=== PATIENT | male | born 1965 | race Two or more races ===

== ENCOUNTER 2025-04-07 09:15 | Day surgery (SDC) | payer MEDICAID, SELFPAY ==
--- NOTE | 2025-04-05 07:00 | EKG_ITS ---
[facility] Test Date: 2025-04-05 Pat Name: JOHN SANCHEZ Department: Room: - Gender: Male [employer]: [facility] : 1965 Requested By: John Darling Order Number: [id number] Reading MD: John Darling Measurements Intervals [place] Rate: 66 P: 9 MA: 179 QRS: 69 QRSD: 97 T: 37 QT: 381 QTc: 400 Interpretive Statements SINUS RHYTHM Compared to ECG 03/28/2024 10:26:21 No significant changes /[id number]/[id number]
[2025-04-05 08:51] VITALS: BMI 39.9
[2025-04-05 09:50] LABS: Basophils # (Auto) 0.0 Thou/mm3 (0.0-0.2); Basophils % (Auto) 0 % (0-2.5); Eosinophils # (Auto) 0.3 Thou/mm3 (0.0-0.5); Eosinophils % (Auto) 3 % (0-10); Hematocrit 42.6 % (41.0-53.0); Hemoglobin 14.5 g/dL (13.5-16.0); Immature Granulocytes Auto 0.04 Thou/mm3 (0.00-0.00); Lymphocytes # (Auto) 3.2 Thou/mm3 (1.0-4.8); Lymphocytes % (Auto) 29 % (10-50); Mean Corpuscular HGB Conc 34.0 g/dl (31.0-37.0); Mean Corpuscular Hemoglobin 31.2 pg (25.0-35.0); Mean Corpuscular Volume 92 fL (80-100); Monocytes # (Auto) 1.0 Thou/mm3 (0.0-0.8); Monocytes % (Auto) 9 % (0-12); Neutrophils # (Auto) 6.3 Thou/mm3 (1.8-7.7); Neutrophils % (Auto) 58 % (37-80); Nucleated Red Blood Cell # 0.00 Thou/mm3 (0.00-0.00); Nucleated Red Blood Cell % 0 /100 WBC (0); Platelet Count 281 Thou/mm3 (140-440); RDW Standard Deviation 48.4 fL (35.1-43.9); Red Blood Count 4.65 Miln/mm3 (4.50-5.90); White Blood Count 10.8 Thou/mm3 (3.8-10.6)
[2025-04-05 09:55] LABS: INR 1.0 (0.9-1.3); Prothrombin Time 11.0 Seconds (9.0-12.2)
[2025-04-05 10:00] LABS: Alanine Aminotransferase 90 U/L (10-49); Albumin, Serum 4.3 gm/dL (3.4-4.8); Albumin/Globulin Ratio 1.3 (1.2-2.2); Alkaline Phosphatase 63 U/L (46-116); Anion Gap 9 (7-16); Aspartate Amino Transferase 40 U/L (0-34); BUN/Creatinine Ratio 8 Ratio (12-20); Bilirubin,Total 0.5 mg/dL (0.3-1.2); Blood Urea Nitrogen 8 mg/dL (9-23); Calcium 9.8 mg/dL (8.3-10.6); Calcium (Corrected) 9.8 mg/dL (8.5-10.1); Carbon Dioxide 28.0 mMol/L (20.0-31.0); Chloride 106 mMol/L (98-107); Creatinine (Component) 1.0 mg/dL (0.6-1.3); Estimated Creatinine Clearance 106.6 mL/min (>60); Globulin 3.3 gm/dL (2.3-3.5); Glucose 114 mg/dL (74-106); Osmolality,Calculated 284 (275-295); Potassium 4.2 mMol/L (3.4-5.1); Sodium 143 mMol/L (136-145); Total Protein 7.6 gm/dL (5.7-8.2); eGFR > 60 See Note
[2025-04-07] VITALS (12 sets, daily range): BP systolic 118–146; BP diastolic 73–97; PULSE 75–90; RESP 14–20; TEMP 36.1–36.4; O2SAT 93–96
--- NOTE | 2025-04-07 11:53 | PD.SUROPNT ---
Date of Procedure 04/07/25 Pre Op Diagnosis Incarcerated umbilical hernia Post Op Diagnosis Incarcerated umbilical hernia Procedure Laparoscopic assisted repair of incarcerated umbilical hernia with mesh Findings Approximately 3.5 cm umbilical hernia defect with incarcerated omentum Procedure Description Patient brought into the operating room in supine position. After administration of general orotracheal anesthesia, patient's abdomen prepped and draped in standard surgical manner. A 5 mm incision was made in left upper quadrant and Veress needle was inserted, pneumoperitoneum was obtained to 15 mmHg. The Veress needle was removed and a 5 mm trocar was placed. Laparoscopic camera was inserted, under direct visualization a laparoscopic camera a 5 mm trocar placed in left lower quadrant and additional 5 mm trocar placed in right lower quadrant. The abdomen was inspected and patient was noted to have an incarcerated umbilical hernia with omentum being incarcerated within the hernia sac. The hernia sac was excised with Harmonic scalpel laparoscopically and the omentum was reduced. At this point approximately 3 cm semicircular incision was made superior to the umbilicus and dissection was carried to subcutaneous tissue. The hernia sac was circumferentially dissected off surrounding tissue. The hernia sac and the incarcerated omentum were then excised from surrounding abdominal fascia. The fascia was cleared from overlying tissue. The defect was approximately 3.5 cm in diameter. A 4 x 6 elliptical shape proceed mesh was used to cover the defect. 2 tacking sutures using 0 Ethibond placed the 2 ends of the mesh and the mesh was placed inside the abdominal cavity through the hernia defect. The defect was closed with interrupted sutures using 0 Ethibond. The umbilicus was tacked into the underlying abdominal fascia was 2-0 Vicryl suture in subcutaneous tissue closed with interrupted sutures of 2-0 Vicryl. The abdomen was once again insufflated. 2 tacking sutures of the 2 ends of the mesh were retrieved through the previously marked abdominal wall site. Sutures were tightened and the mesh was further secured into anterior abdominal wall with secure strap tacking device. The mesh was covering the defect with at least 4 cm circumferential margin. Hemostasis was adequate and satisfactory. Instruments and trocars removed, pneumoperitoneum was evacuated and the incisions closed 4-0 Monocryl subcuticular fashion. Instruments, needles and sponge counts were reported to be correct ?2 patient tolerated the procedure well. Patient was extubated, breathing spontaneously and without difficulty and was transferred to postanesthesia care in stable condition. Anesthesia GETA and local Pathology / specimen Other (Hernia sac and contents) Estimated Blood Loss 5 Condition Stable Disposition PACU Surgeon John Darling MD Surgical Staff Operation Date: 04/07/25 11:45 Case Staff Anesthesiologist: Pernell Lara RNbusiness intelligence etl developer: Lakesha Landaverde
--- NOTE | 2025-04-07 12:00 | SUR.PHASEI ---
1200 Patient arrived to recovery resting comfortably in [facility], on oxygen 10L via oxy mask with an oral/naso airway in place, breathing unlabored, vital signs stable, dressing intact to abdomen; dermabond x4 and x1 dermabond, gauze, medipore tape, no bleeding noted, report received from Marce DAVIS and Dr. Lara
--- NOTE | 2025-04-07 12:47 | SUR.PHASEI ---
pt lying in gurney awake, alert, able to follow commands, breathing unlabored, dressing to abdomen clean, dry, and intact, pt tolerating ice chips without difficulty swallowing or n/v, report from Petrona Hagan RN
--- NOTE | 2025-04-07 13:25 | SUR.PHASEII ---
0534 patient shared he has a history of sleep apnea, Dr. Lara gave order patient okay to discharge home with oxygen saturation >92% on room air
--- NOTE | 2025-04-07 13:30 | SUR.PHASEII ---
1330 working with patient using the incentive spirometer
--- NOTE | 2025-04-07 14:08 | SUR.PHASEII ---
1408 patient meets discharge criteria from recovery, awake and alert, breathing unlabored, vital signs stable, denies pain, dressing intact; no bleeding noted, patient able to dress himself into his clothing, drinking fluids; tolerating well, denies nausea, discharge instructions given to patient and patients [id number] with the assistance of the telephone assistant restaurant general manager Ana, [id number] signed discharge instructions. Patient given all his belongings prior to discharge, transported via wheelchair and left in a private vehicle.
--- NOTE | 2025-04-09 16:12 | PD.ANESPROG ---
Documentation for date of: 04/09/25 POST ANESTHESIA NOTE: Patient had GETA for hernia surgery on 04/07/25. I just called his two numbers for follow up via interpreter and translator but no answer. Pernell Lara MD Anesthesia Progress Note Progress Note Most recent Vital Signs: Last Vital Signs Temp 97.3 F 04/07/25 13:15 Pulse 83 04/07/25 13:45 Resp 17 04/07/25 13:45 BP 146/97 H 04/07/25 13:45 Pulse Ox 95 04/07/25 13:45 O2 Flow Rate 2 04/07/25 13:00
== END 2025-04-07 14:08 | disposition home or self-care (01) ==
PROVIDERS: Anesthesiology; PCP Family Medicine; Referring Provider Surgery; Visit Provider Surgery
PROC: 0WQF4ZZ Repair Abdominal Wall, Percutaneous Endoscopic Approach (ICD-10-PCS; CPT 49594; principal; 2025-04-07 11:30)
DX: K42.0 Umbilical hernia with obstruction, without gangrene (principal); Z01.810 Encounter for preprocedural cardiovascular examination
CPT/HCPCS: 49594; 36415; 80053; 85025; 85610; 93005; A4217; A4649; C1781; J0131; J0690; J1100; J2704; J2765; J3010; J3490; A9270; J1805